=== PATIENT | male | born 1950 | race Caucasian/White ===

== ENCOUNTER → 2017-03-03 | Outpatient (CLI) | payer BC, MEDICARE ==
[~2017-03-03] MED LIST: GLUC-113 PO; LACT1CAP62 PO; NAPR220T76 PO; POTA10CA16 PO; POTA10TA17 PO; TAMS-8 PO; cholesterol med PO
[2017-03-03 10:09] LABS: BILIRUBIN,URINE Negative (Negative); CLARITY,URINE Clear; COLOR,URINE Yellow; GLUCOSE, URINE (UA) Negative (Negative); LEUKOCYTE ESTERASE, URINE Negative (Negative)
[2017-03-03 10:37] LABS: CALCIUM OXALATE CRYSTALS,UR 1+ /HPF; URINE CENTRIFUGED VOLUME 12 mL
== END ==
LOC: LAB 09:23
PROVIDERS: ATTEND Urology
DX: N41.0 Acute prostatitis (principal)
CPT/HCPCS: 81003; 81015; 87088